=== PATIENT | female | born 1985 | race Caucasian/White ===

== ENCOUNTER 2023-06-06 13:39 | Outpatient (CLI) | payer OTHER, SELFPAY ==
[2023-06-06 23:20] LABS: Chlamydia DNA Amplified* NOT DETECTED (No Detected); GC DNA Amplified* NOT DETECTED (No Detected)
== END 2023-06-06 13:40 | disposition home or self-care (01) ==
PROVIDERS: PCP Physician Assistant Medical; Visit Provider Physician Assistant Medical
DX: Z00.00 Encounter for general adult medical examination without abnormal findings (principal); E03.9 Hypothyroidism, unspecified; R53.83 Other fatigue; L60.8 Other nail disorders; N94.6 Dysmenorrhea, unspecified; Z11.3 Encounter for screening for infections with a predominantly sexual mode of transmission
CPT/HCPCS: 87102; 87491; 87591

== ENCOUNTER 2023-06-12 16:52 | Outpatient (CLI) | payer OTHER, SELFPAY ==
--- NOTE | 2023-06-12 17:00 | US_ITS ---
Patient: TONY DARBY Facility:?[facility] Patient ID:?[id number] Site Patient ID:?[id number]. Site :?[id number] Study:?US-Pelvis PELVIS TA & TV-06/12/2023 6:09:17 PM Ordering Physician:?AMANDA JAIN Final Report: INDICATION: Dysmenorrhea. Comparison: None. TECHNIQUE: Transabdominal and transvaginal pelvic ultrasound. FINDINGS: The uterus measures 8.5 x 3.3 x 4.4 cm. The endometrial stripe measures 0.8 cm in thickness with homogeneous echotexture. The right ovary measures 3.8 x 2 x 2.3 cm and the left ovary measures 4.4 x 1.9 x 3 cm. Normal blood flow to the ovaries bilaterally. No fluid identified within the pelvic cul-de-sac. IMPRESSION: Normal transabdominal and transvaginal pelvic ultrasound. Dictated by Shankar Conklin MD @ 06/13/2023 1:29:40 PM Signed by:?Shankar Conklin MD @06/13/2023 1:29:40 PM (Electronic Signature)
== END 2023-06-12 16:53 | disposition home or self-care (01) ==
LOC: US 16:52
PROVIDERS: PCP Physician Assistant Medical; Visit Provider Physician Assistant Medical
DX: N94.6 Dysmenorrhea, unspecified (principal)
CPT/HCPCS: 76830; 76856; 93976

== ENCOUNTER 2023-08-29 08:22 | Outpatient (CLI) | payer OTHER, SELFPAY | END 2023-08-29 08:23 | disposition home or self-care (01) | LOC: NFLDREF 09-01 20:37 | PROVIDERS: PCP Physician Assistant Medical; Visit Provider Physician Assistant Medical | DX: R53.83 Other fatigue (principal); E03.9 Hypothyroidism, unspecified; Z11.3 Encounter for screening for infections with a predominantly sexual mode of transmission | CPT/HCPCS: 80053; 80061; 82306; 82607; 82728; 84439; 84443; 86703; 86803 ==

== ENCOUNTER 2023-11-29 11:08 | Outpatient (CLI) | payer OTHER, SELFPAY | END 2023-11-29 11:09 | disposition home or self-care (01) | LOC: NFLDREF 12-03 22:53 | PROVIDERS: PCP Physician Assistant Medical; Referring Provider Physician Assistant Medical; Visit Provider Physician Assistant Medical | DX: E03.9 Hypothyroidism, unspecified (principal) | CPT/HCPCS: 84443 ==

== ENCOUNTER 2023-12-11 10:30 | Outpatient (CLI) | payer OTHER, SELFPAY ==
--- NOTE | 2023-12-11 10:45 | CRLHL7_ITS ---
For Patients: As a result of the Century Cures Act, medical imaging exams and procedure reports are released immediately into your electronic medical record. You may view this report before your referring provider. If you have questions, please contact your health care provider. BILATERAL SCREENING MAMMOGRAM WITH COMPUTER-AIDED DETECTION AND TOMOSYNTHESIS TECHNIQUE: CC and MLO views were obtained. These mammographic images have been obtained using full-field digital technique. These mammographic images were interpreted with the benefit of computer-aided detection. Breast Tomosynthesis was used in this interpretation. COMPARISON FILM: 04/26/2020. FINDINGS: The breasts are heterogeneously dense, which may obscure small masses. IMPRESSION: There is no radiographic evidence for malignancy. ASSESSMENT: BI-RADS Category 1: Negative RECOMMENDATION: Routine screening mammogram in 1 year. A lay language report of this examination will be provided to the patient. Santos Garcia M.D. Diagnostic Radiologist [email or web address] SP/Dictated by: Santos Garcia MD @ 12/20/2023 9:21:00 AM (Electronically Signed)
== END 2023-12-11 10:31 | disposition home or self-care (01) ==
LOC: MAMMO 10:31
PROVIDERS: PCP Physician Assistant Medical; Visit Provider Physician Assistant Medical
DX: Z12.31 Encounter for screening mammogram for malignant neoplasm of breast (principal); R92.333 Mammographic heterogeneous density, bilateral breasts
CPT/HCPCS: 77063; 77067

== ENCOUNTER 2025-02-18 11:52 | Outpatient (CLI) | payer OTHER, SELFPAY | END 2025-02-18 11:53 | disposition home or self-care (01) | LOC: NFLDREF 02-26 23:04 | PROVIDERS: PCP Physician Assistant Medical; Referring Provider Physician Assistant Medical; Visit Provider Physician Assistant Medical | DX: Z00.00 Encounter for general adult medical examination without abnormal findings (principal); E03.9 Hypothyroidism, unspecified | CPT/HCPCS: 80053; 80061; 84443 ==